=== PATIENT | male | born 2005 | race Caucasian/White ===

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

== ENCOUNTER 2024-04-13 20:31 | Emergency (ER) | payer BC, OTHER ==
[~2024-04-13] VITALS: Ht 170.2 cm; Wt 96.1 kg
[~2024-04-13 20:31] MED LIST: ADV100INH INH; FLUT1BLS5; FLUT1BLS5 INH; LORA-931 PO; MONT10TA97 PO; PATIENT COMMENTS; PROAAER10 INH
[2024-04-13 22:16] VITALS: BP 133/60; TEMP 98.4; O2SAT 97
[2024-04-13] MEDS: IBUPROFEN 600MG TAB PO ONE (22:16)
== END 2024-04-13 22:24 | disposition home or self-care (01) ==
LOC: M ED 20:31
DX: S99.921A Unspecified injury of right foot, initial encounter (principal); M79.671 Pain in right foot; F12.10 Cannabis abuse, uncomplicated; Y92.410 Unspecified street and highway as the place of occurrence of the external cause; Y93.89 Activity, other specified; Y99.0 Civilian activity done for income or pay; Z79.899 Other long term (current) drug therapy